=== PATIENT | male | born 1985 | race Caucasian/White ===

== ENCOUNTER 2023-01-04 12:29 | Emergency (ER) | payer BC ==
[~2023-01-04] VITALS: Ht 182.9 cm; Wt 158.8 kg
[2023-01-04] MEDS ORDERED: LIDOCAINE HCL 2% 20 ML VIAL ONE (12:48)
[2023-01-04] MEDS ORDERED: BACITRACIN ZINC OINT 15 GM TUBE ONE (13:09)
[2023-01-04 13:30] VITALS: O2SAT 98
== END 2023-01-04 13:30 | disposition home or self-care (01) ==
LOC: ER 12:32
DX: S61.215A Laceration without foreign body of left ring finger without damage to nail, initial encounter (principal); W26.0XXA Contact with knife, initial encounter; Y93.89 Activity, other specified; Y92.89 Other specified places as the place of occurrence of the external cause; Y99.8 Other external cause status
CPT/HCPCS: 12001; 99282; J3490; A4606; A4663